=== PATIENT | female | born 1980 | race Caucasian/White ===

== ENCOUNTER → 2016-08-28 | Outpatient (CLI) | payer OTHER ==
[~2016-08-28] MED LIST: FLEXERIL10 MG PO; MEDROL DOSEPAK4 MG PO; MOBIC7.5 MG PO; NAPROSYN500 MG PO; TYLENOL WITH C1 EACH PO
== END | disposition home or self-care (01) ==
LOC: RAD 08:49
DX: E04.2 Nontoxic multinodular goiter (principal)
CPT/HCPCS: 76536

== ENCOUNTER 2016-12-18 14:16 | Emergency (ER) | payer OTHER ==
[~2016-12-18] VITALS: Ht 162.6 cm; Wt 70.5 kg
[2016-12-18 14:47] LABS: HEMATOCRIT 39.3 % (36.0-46.0); MCH 31.5 PG (29.0-34.0); MCHC 34.6 G/DL (30.0-36.0); MEAN PLAT.VOLUME 10.7 uM^3 (9.5-12.4); PLATELET COUNT 212 K/uL (156-360); RBC DIS.WIDTH-CV 12.4 % (11.8-14.6); RBC DIS.WIDTH-SD 41.5 % (39-53); RED BLOOD COUNT 4.32 M/uL (3.80-5.20); WHITE BLOOD COUNT 5.8 K/uL (4.1-10.2)
[2016-12-18 15:03] LABS: CHLORIDE 106 mEq/L (99-109); POTASSIUM 3.4 mEq/L (3.7-5.4); SODIUM 140 mEq/L (136-147)
[2016-12-18 15:05] LABS: GLUCOSE 114 mg/dL (70-99)
[2016-12-18 15:09] LABS: GFR ESTIMATE (CALCULATED) > 59 mL/min/
[2016-12-18 15:10] LABS: UREA NITROGEN (BUN) 8 mg/dL (9-23)
[2016-12-18 15:17] LABS: TROP-I INTERPRETATION NEGATIVE; TROPONIN-I < 0.01 ng/mL (0.0-0.30)
[2016-12-18 17:24] LABS: TROP-I INTERPRETATION NEGATIVE; TROPONIN-I < 0.01 ng/mL (0.0-0.30)
[2016-12-18 17:55] VITALS: BP 129/66
== END 2016-12-18 17:57 | disposition home or self-care (01) ==
LOC: EME 14:16
PROVIDERS: Physician Assistant
DX: R00.2 Palpitations (principal); R07.89 Other chest pain; M79.602 Pain in left arm; F17.200 Nicotine dependence, unspecified, uncomplicated
CPT/HCPCS: 71020; 80048; 84443; 84484; 85027; 93005; 99281; 99284

== ENCOUNTER 2017-09-23 21:45 | Emergency (ER) | payer OTHER ==
[~2017-09-23] VITALS: Ht 162.6 cm; Wt 69.6 kg
[2017-09-23 22:21] VITALS: BP 124/79
[2017-09-23 22:56] LABS: HEMATOCRIT 42.1 % (36.0-46.0); MCH 33.3 PG (29.0-34.0); MCHC 35.6 G/DL (30.0-36.0); MCV 93.3 FL (83-99); PLATELET COUNT 210 K/uL (156-360); RBC DIS.WIDTH-CV 12.5 % (11.8-14.6); RBC DIS.WIDTH-SD 43.2 % (39-53); RED BLOOD COUNT 4.51 M/uL (3.80-5.20)
[2017-09-23 23:05] LABS: CHLORIDE 106 mEq/L (99-109); POTASSIUM 3.7 mEq/L (3.7-5.4); SODIUM 142 mEq/L (136-147)
[2017-09-23 23:06] LABS: GLUCOSE 93 mg/dL (70-99)
[2017-09-23 23:10] LABS: CREATININE 0.8 mg/dL (0.6-1.3); GFR ESTIMATE (CALCULATED) > 59 mL/min/
[2017-09-23 23:11] LABS: UREA NITROGEN (BUN) 6 mg/dL (9-23)
[2017-09-23 23:20] LABS: TROP-I INTERPRETATION NEGATIVE; TROPONIN-I < 0.01 ng/mL (0.0-0.30)
== END 2017-09-23 22:57 | disposition left against medical advice (07) ==
LOC: EME 21:45
DX: R07.9 Chest pain, unspecified (principal); Z53.21 Procedure and treatment not carried out due to patient leaving prior to being seen by health care provider
CPT/HCPCS: 80048; 84484; 85027; 93005